=== PATIENT | male | born 1945 | race Caucasian/White ===

== ENCOUNTER → 2016-06-12 | Outpatient (CLI) | payer OTHER ==
[~2016-06-12] MED LIST: INDA1TAB3 PO; METH250T21 PO; METO25TA3 PO; POTA10TA PO; TERA1CAP63 PO
--- NOTE | 2016-06-13 10:18 | CODING QUERY NO DIAGNOSIS ---
TREATMENT RENDERED WITHOUT A DIAGNOSIS To promote full compliance with coding requirements relating to patient care, physician participation is requested in all cases of window framer uncertainty. Please assist us with providing a diagnosis/symptom for the test(s) below: A diagnosis/symptom was not documented on your Order. A valid diagnosis/symptom is required to bill all insurances. Please remember that we are unable to code a diagnosis of rule out, probable, possible, questionable, or suspected. Tests that require a diagnosis: DOS: 06/12/16 * [facility] [employer] CULTURE RIGHT DIAGNOSIS: Provider Signature: Date: Thank you Bre Fernandez [employer] Once completed, please kindly fax back to [phone] For questions please call [phone]
== END | disposition home or self-care (01) ==
LOC: C.LABSPEC 17:18
PROVIDERS: ATTEND Podiatrist Foot & Ankle Surgery
DX: L60.0 Ingrowing nail (principal); L03.032 Cellulitis of left toe

== ENCOUNTER → 2017-03-10 | Outpatient (CLI) | payer OTHER ==
[2017-03-10 12:37] LABS: BASO % 0.4 %; BASO ABS # 0.02 K/uL (0-0.2); EOS % 1.8 %; HEMATOCRIT 39.5 % (42-52); HEMOGLOBIN 13.8 g/dL (14.0-18.0); IG# 0.01 K/uL (0.00-0.02); LYMPH % 25.7 %; LYMPH ABS # 1.43 K/uL (1.2-3.4); MEAN CELL VOLUME 87.4 fL (80-100); MEAN CORPUSCULAR HEMOGLOBIN 30.5 pg (25-34); MEAN CORPUSCULAR HGB CONC 34.9 g/dl (32-36); MEAN PLATELET VOLUME 11.8 fL (7.4-10.4); MONO % 9.9 %; MONO ABS # 0.55 K/uL (0.11-0.59); NEUT ABS # 3.45 K/uL (1.4-6.5); PLATELET COUNT 239 K/uL (130-400); RED CELL DISTRIBUTION WIDTH CV 12.2 % (11.5-14.5); RED CELL DISTRIBUTION WIDTH SD 39.2 fL (36.4-46.3); WHITE BLOOD COUNT 5.56 K/uL (4.8-10.8)
[2017-03-10 13:22] LABS: HEMOGLOBIN A1C 5.4 % (4.5-5.6)
[2017-03-10 13:35] LABS: ALBUMIN 3.7 gm/dl (3.4-5.0); ALKALINE PHOSPHATASE 59 U/L (45-117); ALT/SGPT 38 U/L (12-78); AST/SGOT 31 U/L (15-37); BLOOD UREA NITROGEN 21 mg/dl (7-18); CALCIUM 8.7 mg/dl (8.5-10.1); CARBON DIOXIDE 29 mmol/L (21-32); CREATININE 1.36 mg/dl (0.60-1.40); GLUCOSE 97 mg/dl (70-99); POTASSIUM 3.5 mmol/L (3.5-5.1); SODIUM 140 mmol/L (136-145); TOTAL PROTEIN 7.5 gm/dl (6.4-8.2)
[2017-03-10 13:42] LABS: CHOLESTEROL 141 mg/dl (0-200); LDL CHOLESTEROL CALCULATED 72 mg/dl
== END | disposition home or self-care (01) ==
LOC: C.LABPVFM 10:02
PROVIDERS: ATTEND Family Medicine
DX: I10 Essential (primary) hypertension (principal)

== ENCOUNTER → 2017-04-01 | Outpatient (CLI) | payer OTHER ==
[~2017-04-01] MED LIST changes: -METO25TA3 PO; +METO25TA4 PO
[2017-04-01 13:54] LABS: CREATININE 1.44 mg/dl (0.60-1.40)
== END | disposition home or self-care (01) ==
LOC: C.LABPVFM 10:28
PROVIDERS: ATTEND Internal Medicine Gastroenterology
DX: K86.2 Cyst of pancreas (principal)

== ENCOUNTER → 2017-08-30 | Outpatient (CLI) | payer OTHER ==
[~2017-08-30] MED LIST changes: -METH250T21 PO; +METH250T4 PO
[2017-08-30 13:19] LABS: ALBUMIN 3.8 gm/dl (3.4-5.0); ALKALINE PHOSPHATASE 58 U/L (45-117); ALT/SGPT 30 U/L (12-78); AST/SGOT 28 U/L (15-37); BLOOD UREA NITROGEN 19 mg/dl (7-18); CALCIUM 8.8 mg/dl (8.5-10.1); CARBON DIOXIDE 33 mmol/L (21-32); CHOLESTEROL 115 mg/dl (0-200); CREATININE 1.41 mg/dl (0.60-1.40); GLUCOSE 78 mg/dl (70-99); LDL CHOLESTEROL CALCULATED 48 mg/dl; POTASSIUM 3.3 mmol/L (3.5-5.1); SODIUM 142 mmol/L (136-145); TOTAL PROTEIN 7.6 gm/dl (6.4-8.2)
== END | disposition home or self-care (01) ==
LOC: C.LABPVFM 10:47
PROVIDERS: ATTEND Family Medicine
DX: I10 Essential (primary) hypertension (principal)

== ENCOUNTER 2018-04-05 12:14 | Inpatient (IN) ==
[2018-04-05] MEDS ORDERED: SODIUM CHLORIDE 0.9% 1000ML 1,000 ML IV ONE (12:35)
[2018-04-05] MEDS ORDERED: SODIUM CHLORIDE 0.9% 1000ML 1,000 ML IV SCH (12:45)
[2018-04-05 13:24] LABS: Appearance Urine Clear (Clear); Bilirubin Urine Negative (Negative); Blood Urine Negative (Negative); Color Urine Yellow; Glucose Urine UA Negative (Negative); Ketones Urine Negative (Negative); Leukocyte Esterase Urine Negative (Negative); Nitrite Urine Negative (Negative); Protein Urine Negative (Negative); Specific Gravity Urine 1.024 (1.000-1.030); Urobilinogen Urine Negative (Negative)
[2018-04-05 13:47] LABS: Basophils # (auto) 0.02 K/uL (0-0.2); Basophils % (auto) 0.4 %; Eosinophils # (auto) 0.04 K/uL (0-0.5); Eosinophils % (auto) 0.7 %; Hematocrit (blood only) 30.6 % (42-52); Hemoglobin 10.6 g/dL (14.0-18.0); Immature Granulocytes # (auto) 0.01 K/uL (0.00-0.02); Immature Granulocytes % (auto) 0.2 %; Lymphocytes # (auto) 0.98 K/uL (1.2-3.4); Lymphocytes % (auto) 17.3 %; Mean Corpuscular Hgb Conc 34.6 g/dL (32-36); Mean Corpuscular Volume 87.2 fL (80-100); Mean Platelet Volume 11.2 fL (7.4-10.4); Monocytes # (auto) 0.38 K/uL (0.11-0.59); Monocytes % (auto) 6.7 %; Neutrophils # (auto) 4.23 K/uL (1.4-6.5); Neutrophils % (auto) 74.7 %; Platelet Count 300 K/uL (130-400); RDW Standard Deviation 41.4 fL (36.4-46.3); Red Blood Count 3.51 M/uL (4.7-6.1); White Blood Count 5.66 K/uL (4.8-10.8)
[2018-04-05 13:56] LABS: Albumin Level 3.6 gm/dl (3.4-5.0); BUN Creatinine Ratio 14.7 (10-20); Calcium 8.3 mg/dl (8.5-10.1); Creatinine Clr Calc Pharmacy 48.5 ml/min; Est GFR (African American) 57.8; Est GFR (Non-African American) 49.8; Potassium 3.9 mmol/L (3.5-5.1)
[2018-04-05 13:59] LABS: Albumin Globulin Ratio 1.1 (0.9-2); Bilirubin,Total 0.2 mg/dl (0.2-1); Globulin 3.3 gm/dl (2.5-4.0); Total Protein 6.9 gm/dl (6.4-8.2)
[2018-04-05 14:00] LABS: Prothrombin Time 10.5 Seconds (9.0-12.0)
[2018-04-05] MEDS ORDERED: PANTOPRAZOLE BOLUS/DRIP 1 EA IV STA (14:57)
[2018-04-05] MEDS ORDERED: PANTOprazole 80 MG in DEXTROSE 5% 100 ML IV ONE (14:57)
[2018-04-05] MEDS ORDERED: PANTOprazole 40 MG in DEXTROSE 5% 100 ML IV SCH (15:00)
--- NOTE | 2018-04-05 15:16 | History & Physical Report ---
Date of Service April 05, 2018 Assessment & Plan (1) GI bleed: - Admit to tele for monitoring - Trend h&H at 2000, hgb = 10.6 upon admission. Follow with am labs or sooner pending next result. - Type and screen completed, will ask for blood consent to be put on the chart. - Continue pantoprazole 40 mg IV BID - HOLD meloxicam - pt has been taking this routinely. Will place on tylenol for leg pain which is chronic in the setting of gi bleed. Most likely should discontinue this medication at discharge. - BUN slightly elevated at 21. - Heme + stool - EKG reviewed and without acute ST wave inversions or changes. - Ask HIM to retrieve records from [facility] regarding EUS/EGD results and most recent colonoscopy which was completed in January. - Consult Dr. Agee with [facility] - discussed with him at bedside. At this time no plans for procedure as there has already been a workup for GI bleeding including c-scope, EGD/EUS and outpatient capsule endoscopy. Await further records from [facility] for further care. - Allow a clear liquid diet. (2) Arthritis: - Holding meloxicam as above, may use tylenol prn for pain (3) GERD (gastroesophageal reflux disease): - Hold PO omeprazole, continue IV protonix 40 mg bid as above. (4) HTN (hypertension): - Cont indapamide 2.5 mg po qam, metoprolol succinate 25 mg qam, lisinopril 5 mg po qam (5) HLD (hyperlipidemia): - Continue rosuvastatin 5 mg q2d (6) Alcohol use: - Drinks 5x per week, recommend alcohol cessation in setting of GI bleed. Likely contributing to current blood loss along with mobic use. - Monitor for signs of withdrawal while inpatient. (7) DVT prophylaxis: - teds, scds, no chemical ppx in the setting of gi bleed. Disposition: Admit to tele, recheck H&H at 1999 History of Present Illness Chief Complaint: Dark stools Primary Care Provider: Constanza Goldstein MD This is a 72 yo M with PMhx of HTN, HLD, hx of constipation, gout, GERD with epigastric discomfort where he has been following with his PCP Constanza Goldstein. He presents today due to lightheadedness/dizziness. Pt notes he called the EMS this morning due to feeling very weak and nearly passing out while sitting down. He notes tarry dark stools for several weeks now. Denies any BRBPR, hematemesis, emesis, epistaxis or hematuria hx. Pt has been routinely taking mobic for leg pain for 1.5 years. Pt has hx of bloating and abdominal discomfort for ~4 months. This started after being enrolled in a study for Pancreatic cancer research due to father having pancreatic cancer, where he undergoes EUS every 6 months. Bloating/ discomfort started after his first EUS. He had been placed on omeprazole several years ago for indigestion and feels this is well controlled. Pt notes he has been told he was lactose intolerant after having a hydrogen urea breath test, however since converting his diet to dairy free symptoms have not changed. He was at [facility] yesterday, where he had an EGD and EUS performed. Requests for these study results has been made by the ER. Hgb currently 10.6 and baseline appears to be around 13-14. Pt has never received a blood transfusion before for low hemoglobin. Allergies Allergy/AdvReac Type Severity Reaction Status Date / Time Sulfa (Sulfonamide Allergy Mild ? Verified 04/05/18 14:41 Antibiotics) Penicillins Allergy Unknown Verified 04/05/18 14:41 Home Medications Home Medications Medication Instructions Recorded Confirmed Type lisinopril 5 mg PO BID 03/21/18 04/05/18 History meloxicam 15 mg PO QAM 03/21/18 04/05/18 History rosuvastatin [Crestor] 5 mg PO Q2D 03/21/18 04/05/18 History cyanocobalamin (vitamin B-12) 1,000 mcg PO QAM 04/05/18 04/05/18 History [Vitamin B-12] indapamide 2.5 mg PO QAM 04/05/18 04/05/18 History metoprolol succinate 25 mg PO QAM 04/05/18 04/05/18 History omeprazole 20 mg PO BIDM 04/05/18 04/05/18 History potassium chloride 20 meq PO QAM 04/05/18 04/05/18 History terazosin 10 mg PO HS 04/05/18 04/05/18 History Past Med/Surg History Medical History H/O blood clots (Acute) No significant active problems (Acute) Surgical History H/O shoulder surgery (Acute) Social History Current Living Situation: Spouse Other Information That Helps Us Care for You: No Feels Safe at Home: Yes Safety Concerns: Feels Safe At This Time Smoking Status: Never smoker Hx Alcohol Use: Yes Alcohol type: beer, wine and hard liquor Alcohol Intake Frequency: a few times a week Hx Substance Use: No Beliefs That Will Affect Care: None Preferred Language: Polish Communication Ability: Effective Eyelet Machine Operator Required: No Review of Systems Constitutional: No fever, sweats or chills Eyes: No diplopia, no worsening or blurred vision ENT: normal hearing, no trouble swallowing Respiratory: No cough, sputum, dyspnea at rest or on exertion Cardiovascular: No chest pain, tightness or palpitations Abdomen: As per HPI. Musculoskeletal: No joint pain, calf pain, swelling Neurologic: No weakness, numbness/tingling, or balance problems Psychiatric: No anxiety or depression Skin: No rash or itch Physical Exam 2 Vital Signs (Past 24 Hours): Last Vital Signs Temp 37.2 C 04/05/18 12:19 Pulse 78 04/05/18 13:23 Resp 18 04/05/18 13:23 BP 143/76 H 04/05/18 13:23 Pulse Ox 99 04/05/18 13:23 Physical Exam: General: awake, alert, no apparent distress Head: Normocephalic, atraumatic ENT: PERRL, EOMI, no pharyngeal exudate, mucous membranes moist Chest: Clear to auscultation, on room air, no adventitious breath sounds Cardiac: Regular rate and rhythm, no murmur, no JVD, normal peripheral pulses, good capillary refill Abdominal: NABS x 4 quadrants, soft, + mildly distended, + minimally tender to palpation in the LLQ, no rebound, guarding or tenderness Extremities: Normal inspection, no peripheral edema or erythema, calfs nontender to palpation Psych: Normal mood and affect Neuro: AAO x 3, strength intact bilaterally and related 5/5, no motor deficits, speech is clear, no peripheral sensory deficits Results & Data ECG Additional Comments: 05-APR-2018 13:04:45 [facility] Normal sinus rhythm Normal ECG When compared with ECG of 01-FEB-2015 01:43, No significant change was found Vent. rate 74 BPM AZ interval 176 ms QRS duration 88 ms QT/QTc 394/437 ms P-R-T axes 51 -13 17 Code Status & VTE Plan Code Status Full code Supervising Physician Co-Signing Physician Notes Patient seen and examined, chart reviewed, case discussed with TRINY Denson and I agree with her assessment and plan as above. Briefly, patient is a 72yo male with possible UGIB. He takes NSAIDS and drinks a small amount of EtOH daily On exam he is afebrile, HD stable, NAD +Abdominal pain in lower abdomen with deep palpation, no rebound/guarding remainder of exam unremarkable labs and images reviewed Assessment/Plan - admit to PCU. trend cbc and transfuse if active bleed. GI consult. Reminder of plan as above
--- NOTE | 2018-04-05 15:52 | Gastrointestinal Consultation ---
Date of Consultation April 05, 2018 Assessment & Plan (1) GI bleed: EGD/EUS apparently negative for source of bleeding and colonsocopy diverticulosis. I have a call out to DR Najera at [facility] who did procedure and CT to confirm results and discusss whether to send him there or elsewhere for double balloon enteroscopy vsersus do colo here and outpt capsule if he stops bleeding. Clear liquid diet for now. (2) Anemia: acute blood loss anemia. follow and transfuse prn. gerd-continue PPI. History of Present Illness Reason for Consultation: melena Requesting Physician: DR Hogue History of Present Illness CC melena, lightheaded HPI Reviewed [facility] EMR and this EMR. Pt had colonoscopy 08/2012 showing sigmoid diverticulosis. He had EGD for melena to [address] [place], [place] [id number] 07/2013 neg and capsule endoscopy negative. He has hx of GERD controlled on PPI. He developed melena about 2 weeks ago still has usual BM pattern of one a day to qod. Hgb 13.8 on and 04/01 10.1 and today 10.6. He had EGD/EUS and CTA yesterday at [facility] as part of a x pancreas CA studay. He states he gets an EUS every 6 months. There is no report of those studies. Pt states his EUS did not show source of bleeding but he does not know CTA results. He has been seeing Dr Muse recently for lower abd milly an bloating. A colonoscpy done to for LLQ pain 01/26/18 showed diverticulosis and mild hemorrhoids. CT a/p here showed nonspecific enteritis. On 02/24/18 TTG and IGA nl. A lactose tolerance test 03/21 positive. He Per ER physician he had scant stool on rectal but heme positive. Allergies Allergy/AdvReac Type Severity Reaction Status Date / Time Sulfa (Sulfonamide Allergy Mild ? Verified 04/05/18 14:41 Antibiotics) Penicillins Allergy Unknown Verified 04/05/18 14:41 Home Medications Home Medications Medication Instructions Recorded Confirmed Type lisinopril 5 mg PO BID 03/21/18 04/05/18 History meloxicam 15 mg PO QAM 03/21/18 04/05/18 History rosuvastatin [Crestor] 5 mg PO Q2D 03/21/18 04/05/18 History cyanocobalamin (vitamin B-12) 1,000 mcg PO QAM 04/05/18 04/05/18 History [Vitamin B-12] indapamide 2.5 mg PO QAM 04/05/18 04/05/18 History metoprolol succinate 25 mg PO QAM 04/05/18 04/05/18 History omeprazole 20 mg PO BIDM 04/05/18 04/05/18 History potassium chloride 20 meq PO QAM 04/05/18 04/05/18 History terazosin 10 mg PO HS 04/05/18 04/05/18 History Patient History Medical History H/O blood clots (Acute) No significant active problems (Acute) Surgical History H/O shoulder surgery (Acute) Family History Father Pancreatic cancer Social History Feels Safe at Home: Yes Smoking Status: Never smoker Preferred Language: Indonesian Review of Systems see HPI. Otherwise 10 ROS negative. Physical Exam 2 Vital Signs (Past 24 Hours): Last Vital Signs Temp 37.2 C 04/05/18 12:19 Pulse 78 04/05/18 13:23 Resp 18 04/05/18 13:23 BP 143/76 H 04/05/18 13:23 Pulse Ox 99 04/05/18 13:23 Constitutional: WD/WN, vitals as above Eyes: PERRL, conjunctivae normal, anicteric sclerae ENMT: external ear and nose normal, oropharynx normal Neck: normal visual inspection; no tracheal deviation Respiratory: normal respiratory effort, lungs clear to auscultation Cardiovascular: RRR, no murmur, no edema Gastrointestinal (Abdomen): normal bowel sounds, soft, nontender, no hepatosplenomegaly Neurologic: PERRL, EOMI, accommodation nl, no face palsy, no dysarthria Psychiatric: A+Ox3, euthymic affect _ (1) GI bleed GI bleed type/associated pathology: unspecified gastrointestinal hemorrhage type Gastritis type: Qualified Code(s): K92.2 - Gastrointestinal hemorrhage, unspecified (2) Anemia Anemia type: unspecified type Bone marrow failure anemia type: Chronic kidney disease stage: Folate deficiency anemia type: Hemolytic anemia type: Iron deficiency anemia type: Other causes of anemia: Vitamin B12 deficiency anemia type: Qualified Code(s): D64.9 - Anemia, unspecified
--- NOTE | 2018-04-05 19:14 | Emergency Department Note ---
Entered by Thais Elam acting as a scribe for Gerardo Hogue DO History of Present Illness General Chief complaint: GI Assessment Stated complaint: WEAKNESS Source: patient and family Mode of arrival: EMS Limitations: no limitations History of Present Illness Provider complaint: Dizziness Onset (ago): hour(s) less than 1 Location: head Severity: moderate Pain Consistency: + now resolved Associated symptoms: + other (fatigue) Patient is a72 year old male presenting to the ED via EMS with dizziness beginning just [employer]. Patient states that for the past x2 weeks, he has been having bloody stools, which are moderate in severity and intermittent. He notes that he went to his PCP x4 days ago to give stool sample, and was told his hemoglobin levels were low at 10.1, normally being about 13.1. Patient notes that today while sitting, he began to feel dizzy. He shares that he does not currently feel dizzy, but is fatigue. Patient denies being on blood thinners. He does share that he has a family history of pancreatic cancer, and is regularly tested at [facility] every x6 months through MRI and EUS. He notes that he has had chronic diffuse abd pain for the past x4 months after having a EUS at [facility]. He denies any nausea, vomiting, or any other complaints or concerns at this time. Home Medications Home Medications Medication Instructions Recorded Confirmed Type lisinopril 5 mg PO BID 03/21/18 04/05/18 History meloxicam 15 mg PO QAM 03/21/18 04/05/18 History rosuvastatin [Crestor] 5 mg PO Q2D 03/21/18 04/05/18 History cyanocobalamin (vitamin B-12) 1,000 mcg PO QAM 04/05/18 04/05/18 History [Vitamin B-12] indapamide 2.5 mg PO QAM 04/05/18 04/05/18 History metoprolol succinate 25 mg PO QAM 04/05/18 04/05/18 History omeprazole 20 mg PO BIDM 04/05/18 04/05/18 History potassium chloride 20 meq PO QAM 04/05/18 04/05/18 History terazosin 10 mg PO HS 04/05/18 04/05/18 History Allergies Allergy/AdvReac Type Severity Reaction Status Date / Time Sulfa (Sulfonamide Allergy Mild ? Verified 04/05/18 14:41 Antibiotics) Penicillins Allergy Unknown Verified 04/05/18 14:41 Past Med/Surg History Medical History H/O blood clots (Acute) No significant active problems (Acute) Surgical History H/O shoulder surgery (Acute) Social History Feels Safe at Home: Yes Smoking Status: Never smoker Preferred Language: Russian Review of Systems See HPI for pertinent positives & negatives. and A total of 10 systems reviewed and were otherwise negative Physical Exam Vital Signs Vital Signs - 24 hr 04/05/18 12:19 04/05/18 13:09 04/05/18 13:23 Temperature 37.2 C Temperature Source Oral Sepsis Recent Fever Within 48 Hours No Sepsis New/Unexplained Change in Mental Status No Sepsis Action Taken by Nursing No Action Required Pulse Rate 92 H 82 Pulse Rate [Left Finger] 78 Pulse Rate from SpO2 Sensor 82 Respiratory Rate 16 14 Respiratory Effort / Characteristics Non-Labored Spontaneous Respiratory Depth Normal Respiratory Pattern Regular Blood Pressure 161/72 H 143/76 H Blood Pressure [Left Arm] 143/76 H Blood Pressure Mean 101 98 Blood Pressure Mean [Left Arm] 98 Blood Pressure Position [Left Arm] Lying Pulse Oximetry 96 96 99 Oxygen Delivery Method Room Air Room Air Room Air 04/05/18 13:35 04/05/18 13:40 04/05/18 13:50 Temperature Temperature Source Sepsis Recent Fever Within 48 Hours Sepsis New/Unexplained Change in Mental Status Sepsis Action Taken by Nursing Pulse Rate 84 80 77 Pulse Rate [Left Finger] Pulse Rate from SpO2 Sensor 81 79 79 Respiratory Rate 17 18 18 Respiratory Effort / Characteristics Respiratory Depth Respiratory Pattern Blood Pressure Blood Pressure [Left Arm] Blood Pressure Mean Blood Pressure Mean [Left Arm] Blood Pressure Position [Left Arm] Pulse Oximetry 98 98 98 Oxygen Delivery Method 04/05/18 14:00 04/05/18 14:01 04/05/18 14:10 Temperature Temperature Source Sepsis Recent Fever Within 48 Hours Sepsis New/Unexplained Change in Mental Status Sepsis Action Taken by Nursing Pulse Rate 76 75 72 Pulse Rate [Left Finger] Pulse Rate from SpO2 Sensor 76 75 73 Respiratory Rate 21 17 21 Respiratory Effort / Characteristics Respiratory Depth Respiratory Pattern Blood Pressure 152/79 H Blood Pressure [Left Arm] Blood Pressure Mean 103 Blood Pressure Mean [Left Arm] Blood Pressure Position [Left Arm] Pulse Oximetry 98 98 99 Oxygen Delivery Method 04/05/18 14:20 04/05/18 14:30 04/05/18 14:40 Temperature Temperature Source Sepsis Recent Fever Within 48 Hours Sepsis New/Unexplained Change in Mental Status Sepsis Action Taken by Nursing Pulse Rate 73 69 73 Pulse Rate [Left Finger] Pulse Rate from SpO2 Sensor 73 69 73 Respiratory Rate 18 13 17 Respiratory Effort / Characteristics Respiratory Depth Respiratory Pattern Blood Pressure Blood Pressure [Left Arm] Blood Pressure Mean Blood Pressure Mean [Left Arm] Blood Pressure Position [Left Arm] Pulse Oximetry 98 99 98 Oxygen Delivery Method 04/05/18 14:50 04/05/18 15:00 04/05/18 15:01 Temperature Temperature Source Sepsis Recent Fever Within 48 Hours Sepsis New/Unexplained Change in Mental Status Sepsis Action Taken by Nursing Pulse Rate 71 65 Pulse Rate [Left Finger] Pulse Rate from SpO2 Sensor 94 H 71 66 Respiratory Rate 21 12 5 L Respiratory Effort / Characteristics Respiratory Depth Respiratory Pattern Blood Pressure 154/84 H Blood Pressure [Left Arm] Blood Pressure Mean 107 Blood Pressure Mean [Left Arm] Blood Pressure Position [Left Arm] Pulse Oximetry 97 97 98 Oxygen Delivery Method 04/05/18 15:10 04/05/18 15:20 04/05/18 15:30 Temperature Temperature Source Sepsis Recent Fever Within 48 Hours Sepsis New/Unexplained Change in Mental Status Sepsis Action Taken by Nursing Pulse Rate 76 80 83 Pulse Rate [Left Finger] Pulse Rate from SpO2 Sensor 73 69 85 Respiratory Rate 20 13 24 Respiratory Effort / Characteristics Respiratory Depth Respiratory Pattern Blood Pressure Blood Pressure [Left Arm] Blood Pressure Mean Blood Pressure Mean [Left Arm] Blood Pressure Position [Left Arm] Pulse Oximetry 96 100 99 Oxygen Delivery Method 04/05/18 15:40 04/05/18 15:50 04/05/18 16:00 Temperature Temperature Source Sepsis Recent Fever Within 48 Hours Sepsis New/Unexplained Change in Mental Status Sepsis Action Taken by Nursing Pulse Rate 80 75 72 Pulse Rate [Left Finger] Pulse Rate from SpO2 Sensor 81 74 73 Respiratory Rate 18 16 15 Respiratory Effort / Characteristics Respiratory Depth Respiratory Pattern Blood Pressure 164/75 H Blood Pressure [Left Arm] Blood Pressure Mean 104 Blood Pressure Mean [Left Arm] Blood Pressure Position [Left Arm] Pulse Oximetry 99 98 98 Oxygen Delivery Method 04/05/18 16:01 04/05/18 16:10 04/05/18 16:20 Temperature Temperature Source Sepsis Recent Fever Within 48 Hours Sepsis New/Unexplained Change in Mental Status Sepsis Action Taken by Nursing Pulse Rate 72 71 72 Pulse Rate [Left Finger] Pulse Rate from SpO2 Sensor 72 71 79 Respiratory Rate 9 L 15 18 Respiratory Effort / Characteristics Respiratory Depth Respiratory Pattern Blood Pressure Blood Pressure [Left Arm] Blood Pressure Mean Blood Pressure Mean [Left Arm] Blood Pressure Position [Left Arm] Pulse Oximetry 98 98 99 Oxygen Delivery Method 04/05/18 16:30 04/05/18 16:40 04/05/18 16:50 Temperature Temperature Source Sepsis Recent Fever Within 48 Hours Sepsis New/Unexplained Change in Mental Status Sepsis Action Taken by Nursing Pulse Rate 78 76 74 Pulse Rate [Left Finger] Pulse Rate from SpO2 Sensor 79 76 72 Respiratory Rate 19 20 18 Respiratory Effort / Characteristics Respiratory Depth Respiratory Pattern Blood Pressure Blood Pressure [Left Arm] Blood Pressure Mean Blood Pressure Mean [Left Arm] Blood Pressure Position [Left Arm] Pulse Oximetry 98 99 96 Oxygen Delivery Method 04/05/18 17:00 04/05/18 17:01 04/05/18 17:10 Temperature Temperature Source Sepsis Recent Fever Within 48 Hours Sepsis New/Unexplained Change in Mental Status Sepsis Action Taken by Nursing Pulse Rate 68 75 67 Pulse Rate [Left Finger] Pulse Rate from SpO2 Sensor 68 74 68 Respiratory Rate 13 20 20 Respiratory Effort / Characteristics Respiratory Depth Respiratory Pattern Blood Pressure 150/71 H Blood Pressure [Left Arm] Blood Pressure Mean 97 Blood Pressure Mean [Left Arm] Blood Pressure Position [Left Arm] Pulse Oximetry 98 99 98 Oxygen Delivery Method 04/05/18 17:20 04/05/18 17:30 Temperature Temperature Source Sepsis Recent Fever Within 48 Hours Sepsis New/Unexplained Change in Mental Status Sepsis Action Taken by Nursing Pulse Rate 67 73 Pulse Rate [Left Finger] Pulse Rate from SpO2 Sensor 68 73 Respiratory Rate 19 16 Respiratory Effort / Characteristics Respiratory Depth Respiratory Pattern Blood Pressure Blood Pressure [Left Arm] Blood Pressure Mean Blood Pressure Mean [Left Arm] Blood Pressure Position [Left Arm] Pulse Oximetry 99 99 Oxygen Delivery Method GENERAL: Sitting up in bed, alert, well appearing, well nourished, no distress, non-toxic EYE EXAM: normal conjunctiva. OROPHARYNX: no exudate, no erythema, lips, buccal mucosa, and tongue normal and mucous membranes are moist NECK: supple, no nuchal rigidity, no adenopathy, non-tender LUNGS: Clear to auscultation. Normal chest wall mechanics HEART: no murmurs, S1 normal and S2 normal ABDOMEN: abdomen soft, non-tender, normo-active bowel, sounds, no masses, no rebound or guarding. RECTAL: hemoccult positive BACK: Back is symmetrical on inspection and there is no deformity, no midline tenderness, no CVA tenderness. SKIN: no rashes and no bruising UPPER EXTREMITIES: upper extremities are grossly normal. LOWER EXTREMITIES: No pitting edema. NEURO EXAM: Normal sensorium, cranial nerves II-XII grossly intact, normal speech, no gross weakness of arms, no gross weakness of legs. No drift. Finger to noseintact. Gross sensation intact. Course Vital signs were reviewed and showed hypertension. The patients medical record was reviewed The above diagnostic studies were performed and reviewed. ED treatments and interventions as stated above. 1235: The patient was evaluated in room A11B. A complete history and physical examination was performed. 1410: Upon reevaluation, the patient is feeling better. I discussed my findings with the patient and he understands and agrees with the treatment plan regarding admission. Based on the patients age, coexisting illnesses, exam and lab findings the decision to treat as an inpatient was made. 1441: Discussed patient case with Dr. Agee, who agrees patient should be admitted. 1454: Discussed case with Dr. Kelly, who is accepting patient for admission. The patient remained stable while under my care. The patient will be evaluated for further management. Administered Medications Pantoprazole Sodium 40 mg/ (Dextrose) 100 mls @ 20 mls/hr IV Q5H DONNY Stop: 05/05/18 14:59 Last Admin: 04/05/18 15:34 Dose: 20 mls/hr Discontinued Medications Sodium Chloride (Nss 1000ml) 1,000 mls @ 999 mls/hr IV .Q1H1M ONE Stop: 04/05/18 13:35 Last Infusion: 04/05/18 14:03 Dose: 0 mls/hr Admin: 04/05/18 13:09 Dose: 999 mls/hr Sodium Chloride (Nss 1000ml) 1,000 mls @ 999 mls/hr IV .Q1H1M DONNY Stop: 04/05/18 13:45 Last Infusion: 04/05/18 14:03 Dose: 0 mls/hr Admin: 04/05/18 13:09 Dose: 999 mls/hr Pantoprazole Sodium 80 mg/ (Dextrose) 120 mls @ 400 mls/hr IV NOW ONE Stop: 04/05/18 15:14 Last Infusion: 04/05/18 15:34 Dose: 0 mls/hr Admin: 04/05/18 15:16 Dose: 400 mls/hr Pantoprazole Sodium (Protonix Bolus/Drip) 0 mls @ 1 mls/hr IV ONE STA Stop: 04/05/18 14:58 Last Admin: 04/05/18 15:41 Dose: Not Given Medical Decision Making Differential Diagnosis Differential diagnosis includes etiologies such as benign positional vertigo, dehydration, hypovolemia, anemia, tumor, infection, hypoglycemia, electrolyte abnormalities, cardiac sources, intracerebral event, toxicologic, neurologic, as well as others were entertained. Medical Records Attestation: I reviewed the patient's medical records. Home Medications Current Medication List: was personally reviewed by me Laboratory Data Attestation: I reviewed the patient's lab results. Result diagrams: 04/05/18 12:47 04/05/18 12:47 Lab Results 04/05/18 04/05/18 04/05/18 Range/Units 12:47 12:47 12:47 WBC 5.66 (4.8-10.8) K/uL RBC 3.51 L (4.7-6.1) M/uL Hgb 10.6 L (14.0-18.0) g/dL Hct 30.6 L (42-52) % MCV 87.2 (80-100) fL MCH 30.2 (25-34) pg MCHC 34.6 (32-36) g/dL RDW Std Deviation 41.4 (36.4-46.3) fL RDW Coeff of Alvin 13.0 (11.5-14.5) % Plt Count 300 (130-400) K/uL MPV 11.2 H (7.4-10.4) fL Immature Gran % (Auto) 0.2 % Neut % (Auto) 74.7 % Lymph % (Auto) 17.3 % [place] % (Auto) 6.7 % Eos % (Auto) 0.7 % Baso % (Auto) 0.4 % Immature Gran # (Auto) 0.01 (0.00-0.02) K/uL Neut # (Auto) 4.23 (1.4-6.5) K/uL Lymph # (Auto) 0.98 L (1.2-3.4) K/uL [place] # (Auto) 0.38 (0.11-0.59) K/uL Eos # (Auto) 0.04 (0-0.5) K/uL Baso # (Auto) 0.02 (0-0.2) K/uL PT 10.5 (9.0-12.0) Seconds INR 1.0 (0.9-1.1) Sodium 140 (136-145) mmol/L Potassium 3.9 (3.5-5.1) mmol/L Chloride 107 (98-107) mmol/L Carbon Dioxide 29 (21-32) mmol/L Anion Gap 5.0 (3-11) BUN 21 H (7-18) mg/dl Creatinine 1.40 (0.6-1.4) mg/dl Est Cr Clr Drug Dosing 48.5 ml/min Est GFR ( Amer) 57.8 Est GFR (Non-Af Amer) 49.8 BUN/Creatinine Ratio 14.7 (10-20) Glucose 97 (70-99) mg/dl Calcium 8.3 L (8.5-10.1) mg/dl Total Bilirubin 0.2 (0.2-1) mg/dl AST 24 (15-37) U/L ALT 25 (12-78) U/L Alkaline Phosphatase 55 (45-117) U/L Total Protein 6.9 (6.4-8.2) gm/dl Albumin 3.6 (3.4-5.0) gm/dl Globulin 3.3 (2.5-4.0) gm/dl Albumin/Globulin Ratio 1.1 (0.9-2) Lipase 213 (73-393) U/L Urine Color Urine Appearance (Clear) Urine pH (4.5-7.5) Ur Specific [place] (1.000-1.030) Urine Protein (Negative) Urine Glucose (UA) (Negative) Urine Ketones (Negative) Urine Blood (Negative) Urine Nitrite (Negative) Urine Bilirubin (Negative) Urine Urobilinogen (Negative) Ur Leukocyte Esterase (Negative) Blood Type Antibody Screen 04/05/18 04/05/18 Range/Units 12:47 13:10 WBC (4.8-10.8) K/uL RBC (4.7-6.1) M/uL Hgb (14.0-18.0) g/dL Hct (42-52) % MCV (80-100) fL MCH (25-34) pg MCHC (32-36) g/dL RDW Std Deviation (36.4-46.3) fL RDW Coeff of Alvin (11.5-14.5) % Plt Count (130-400) K/uL MPV (7.4-10.4) fL Immature Gran % (Auto) % Neut % (Auto) % Lymph % (Auto) % [place] % (Auto) % Eos % (Auto) % Baso % (Auto) % Immature Gran # (Auto) (0.00-0.02) K/uL Neut # (Auto) (1.4-6.5) K/uL Lymph # (Auto) (1.2-3.4) K/uL [place] # (Auto) (0.11-0.59) K/uL Eos # (Auto) (0-0.5) K/uL Baso # (Auto) (0-0.2) K/uL PT (9.0-12.0) Seconds INR (0.9-1.1) Sodium (136-145) mmol/L Potassium (3.5-5.1) mmol/L Chloride (98-107) mmol/L Carbon Dioxide (21-32) mmol/L Anion Gap (3-11) BUN (7-18) mg/dl Creatinine (0.6-1.4) mg/dl Est Cr Clr Drug Dosing ml/min Est GFR ( Amer) Est GFR (Non-Af Amer) BUN/Creatinine Ratio (10-20) Glucose (70-99) mg/dl Calcium (8.5-10.1) mg/dl Total Bilirubin (0.2-1) mg/dl AST (15-37) U/L ALT (12-78) U/L Alkaline Phosphatase (45-117) U/L Total Protein (6.4-8.2) gm/dl Albumin (3.4-5.0) gm/dl Globulin (2.5-4.0) gm/dl Albumin/Globulin Ratio (0.9-2) Lipase (73-393) U/L Urine Color Yellow Urine Appearance Clear (Clear) Urine pH 6.0 (4.5-7.5) Ur Specific [place] 1.024 (1.000-1.030) Urine Protein Negative (Negative) Urine Glucose (UA) Negative (Negative) Urine Ketones Negative (Negative) Urine Blood Negative (Negative) Urine Nitrite Negative (Negative) Urine Bilirubin Negative (Negative) Urine Urobilinogen Negative (Negative) Ur Leukocyte Esterase Negative (Negative) Blood Type A Negative Antibody Screen NEGATIVE ECG Data Attestation: I personally reviewed and interpreted this ECG as follows: Indication: other (dizziness) Rate (beats per minute): 74 Rhythm: sinus rhythm Findings: + other (normal axis); no PVC Blood Pressure Blood Pressure Findings: Elevated blood pressure Blood Pressure Disposition: elevated BP felt to be situational MDM Narrative Patient is a 72-year-old male presents the ER for 2 weeks of dark stool. He notes he has been feeling weak and dizzy recently. Labs were obtained and showed a hemoglobin 10.6 down from 13.8. INR is unremarkable. BMP along with LFTs bilirubin and lipase is unremarkable. UA was negative. Patient was typed and screened. Patient had a CT performed as an outpatient done yesterday of his abdomen and we attempted to obtain this from [facility]. No new abdominal pain. Discussed with GI and the hospitalist. Patient was placed on fluids and given a Protonix drip and bolus. Patient was admitted to the hospitalist for a GI bleed. Impression & Plan GI bleed, Anemia Discharge Plan Visit Data Chief Complaint: GI Assessment Stated Complaint: WEAKNESS ED Provider: Gerardo Hogue Discharge Problem: GI bleed, Anemia The scribe's documentation has been prepared under my direction and personally reviewed by me in its entirety. I confirm that the note above accurately reflects all work, treatment, procedures, and medical decision making performed by me.
[2018-04-05] MEDS ORDERED: ONDANSETRON INJ 2 MG/ML 2 ML VIAL IV PRN (19:25)
[2018-04-05] MEDS ORDERED: ACETAMINOPHEN 325 MG TAB PO PRN (19:25)
[2018-04-05 20:04] LABS: Hemoglobin 10.3 g/dL (14.0-18.0)
[2018-04-05] MEDS ORDERED: TERAZOSIN HCL 5 MG CAP PO SCH (21:00)
[2018-04-05] MEDS: LISINOPRIL 5 MG TAB PO SCH (21:17)
[2018-04-05] MEDS: PANTOprazole 40 MG in SYRINGE 0 ML IV SCH (21:17)
[2018-04-06 06:07] LABS: Hematocrit (blood only) 28.6 % (42-52); Hemoglobin 9.6 g/dL (14.0-18.0); Mean Corpuscular Hgb Conc 33.6 g/dL (32-36); Mean Corpuscular Volume 89.4 fL (80-100); Mean Platelet Volume 10.4 fL (7.4-10.4); Platelet Count 252 K/uL (130-400); RDW Coefficient of Variation 12.9 % (11.5-14.5); RDW Standard Deviation 41.7 fL (36.4-46.3); White Blood Count 4.65 K/uL (4.8-10.8)
[2018-04-06 06:45] LABS: BUN Creatinine Ratio 10.7 (10-20); Calcium 7.6 mg/dl (8.5-10.1); Est GFR (African American) 56.8; Potassium 3.8 mmol/L (3.5-5.1)
[2018-04-06 06:47] LABS: Bilirubin,Total 0.6 mg/dl (0.2-1); Globulin 2.9 gm/dl (2.5-4.0); Total Protein 5.9 gm/dl (6.4-8.2)
[2018-04-06] MEDS: LISINOPRIL 5 MG TAB PO SCH (08:14)
[2018-04-06] MEDS: PANTOprazole 40 MG in SYRINGE 0 ML IV SCH (08:14)
[2018-04-06] MEDS ORDERED: INDAPAMIDE 1.25 MG TAB PO SCH (09:00)
[2018-04-06] MEDS ORDERED: POTASSIUM CHLORIDE 10 MEQ TABCR PO SCH (09:00)
[2018-04-06] MEDS ORDERED: METOPROLOL SUCC 25MG EXT REL TAB PO SCH (09:00)
[2018-04-06] MEDS ORDERED: ROSUVASTATIN CALCIUM 5 MG TAB PO SCH (09:00)
[2018-04-06] MEDS ORDERED: CYANOCOBALAMIN 500 MCG TABLET (VITAMIN B-12) PO SCH (09:00)
[2018-04-06 14:21] LABS: Basophils # (auto) 0.06 K/uL (0-0.2); Basophils % (auto) 1.3 %; Eosinophils # (auto) 0.05 K/uL (0-0.5); Eosinophils % (auto) 1.1 %; Hematocrit (blood only) 27.8 % (42-52); Hemoglobin 9.4 g/dL (14.0-18.0); Immature Granulocytes # (auto) 0.01 K/uL (0.00-0.02); Immature Granulocytes % (auto) 0.2 %; Lymphocytes # (auto) 1.38 K/uL (1.2-3.4); Lymphocytes % (auto) 29.8 %; Mean Corpuscular Hgb Conc 33.8 g/dL (32-36); Mean Corpuscular Volume 88.8 fL (80-100); Mean Platelet Volume 10.8 fL (7.4-10.4); Monocytes # (auto) 0.43 K/uL (0.11-0.59); Monocytes % (auto) 9.3 %; Neutrophils % (auto) 58.3 %; Platelet Count 255 K/uL (130-400); RDW Standard Deviation 41.6 fL (36.4-46.3); Red Blood Count 3.13 M/uL (4.7-6.1); White Blood Count 4.63 K/uL (4.8-10.8)
--- NOTE | 2018-04-06 14:51 | Gastroenterology Progress Note ---
Date of Service April 06, 2018 Assessment & Plan (1) GI bleed: EGD/EUS apparently negative for source of bleeding and colonsocopy 01/26/18 diverticulosis. Did not receive call from [facility]. Saw CTA/CT renal cyst and nl mesenteric vessels. NoEGD or EUS report in chart. Resolved. Discussed with patient and recommend outpt capsule endoscopy and will have our nurse in office work on that. Discussed have PCP check CBC next wednesday. Also discussed stop Mobic and do not use other NSAIDS except tylenol. Discussed with Dr Maya. Will sign off. (2) Anemia: acute blood loss anemia. drop this am but no active bleed and stable this am --ok for DC from GI standpoint. gerd-continue PPI. Subjective cc f/u GI bleeeding HPI Had normal colored stool today with some fresh heme on wiping likely hemorrhoids. No black stools. No abd pin. Respiratory: no dyspnea Cardiovascular: no chest pain Physical Exam Vital Signs (Past 24 Hours): Last Vital Signs Temp 36.8 C 04/06/18 11:07 Pulse 63 04/06/18 11:07 Resp 20 04/06/18 11:07 BP 120/60 04/06/18 11:07 Pulse Ox 98 04/06/18 11:07 Constitutional: WD/WN, vitals as above Respiratory: normal respiratory effort, lungs clear to auscultation Cardiovascular: RRR, no murmur, no edema Gastrointestinal (Abdomen): normal bowel sounds, soft, nontender, no hepatosplenomegaly Psychiatric: A+Ox3, euthymic affect (1) GI bleed GI bleed type/associated pathology: unspecified gastrointestinal hemorrhage type Qualified Code(s): K92.2 - Gastrointestinal hemorrhage, unspecified (2) Anemia Anemia type: unspecified type Qualified Code(s): D64.9 - Anemia, unspecified
--- NOTE | 2018-04-06 15:42 | Discharge Summary ---
Date of Service April 06, 2018 Admission HPI Per Admitting Provider This is a 72 yo M with PMhx of HTN, HLD, hx of constipation, gout, GERD with epigastric discomfort where he has been following with his PCP Constanza Goldstein. He presents today due to lightheadedness/dizziness. Pt notes he called the EMS this morning due to feeling very weak and nearly passing out while sitting down. He notes tarry dark stools for several weeks now. Denies any BRBPR, hematemesis, emesis, epistaxis or hematuria hx. Pt has been routinely taking mobic for leg pain for 1.5 years. Pt has hx of bloating and abdominal discomfort for ~4 months. This started after being enrolled in a study for Pancreatic cancer research due to father having pancreatic cancer, where he undergoes EUS every 6 months. Bloating/discomfort started after his first EUS. He had been placed on omeprazole several years ago for indigestion and feels this is well controlled. Pt notes he has been told he was lactose intolerant after having a hydrogen urea breath test, however since converting his diet to dairy free symptoms have not changed. He was at [facility] yesterday, where he had an EGD and EUS performed. Requests for these study results has been made by the ER. Hgb currently 10.6 and baseline appears to be around 13-14. Pt has never received a blood transfusion before for low hemoglobin. Hospital course The patient was admitted to telemetry. Gastroenterology was consulted. Given the patient's recent EGD and colonoscopy, combined with the patient's hemodynamic stability and stable blood count, a video endoscopy was recommended as the next step. With no active bleeding it was decided that this can be done as an outpatient and this was the patient's preference as well. The patient will contact [facility] gastroenterology on Wednesday of next week to start arrangements. Patient also follow-up with his primary care physician early next week for reexamination and a repeat hemoglobin. We discussed the signs and symptoms of acute blood loss and he will return to the emergency department should he experience the symptoms. We discussed that Mobic could potentiate gastrointestinal bleeding and recommend that he stop taking the Mobic and discuss other options for his osteoarthritic knee pain with his primary care physician. Repeat BMP was completed to monitor his CKD, stage III Diagnosis (primary) Gastrointestinal bleeding Anemia, acute blood loss CKD, stage III Principal Diagnosis Gastrointestinal bleed Acute blood loss anemia CKD, stage III Discharge Exam Upon examination the patient is alert and oriented. He has no complaints. He is lying supine in bed without any distress. HEENT: Mucous membranes are pink and moist. Neck is supple. Trachea is midline. CV: Regular rate and rhythm. LUNGS: Clear throughout with nonlabored respirations. ABD: Soft and nontender. Bowel sounds are auscultated and are normoactive. EXT: No edema. No calf tenderness appreciated. Discharge Data Allergies Allergy/AdvReac Type Severity Reaction Status Date / Time Sulfa (Sulfonamide Allergy Mild ? Verified 04/05/18 14:41 Antibiotics) Penicillins Allergy Unknown Verified 04/05/18 14:41 Consultations 04/05/18 14:57 ED Decision to Admit Stat 04/05/18 19:25 Consult Case Management - Discharge Planning Routine Consult Gastroenterology Routine Consult Health Information Management Stat Total Time Total Time Spent Total Time Spent (In Minutes): 45 Total Time Includes: Examination of the Patient, Discharge Planning, Medication Reconciliation and Communication With Other Providers Discharge Plan Discharge Items Patient Disposition: Home - Self-Care Reason For Visit: GI BLEED Discharge Diagnosis: GI Bleed Condition: Good Discharge Goals: Diagnostic testing and Learn about illness Activity: Resume your previous activity Lifting: Gradually increase as tolerated Bathing: No limitations Sexual Activity: When tolerated Exercise/Sports: Gradually increase as tolerated Driving/Machine Use: No limitations Non-emergency contact: Primary Care Provider Call non-emergency contact if: you have any medication questions and your sy mptoms worsen Follow-up/Referrals: Contsanza Goldstein MD [Primary Care Provider] - Diet: Heart Healthy Addtl Provider Instructions: Stop taking your meloxicam. Follow up with your family doctor next week. Check your blood count next week. Prescriptions: Continued indapamide 2.5 mg tablet 2.5 mg PO QAM RF: 0 potassium chloride 10 mEq Tablet Extended Release 20 meq PO QAM RF: 0 metoprolol succinate 25 mg tablet extended release 24 hr 25 mg PO QAM RF: 0 terazosin 10 mg capsule 10 mg PO HS RF: 0 cyanocobalamin (vitamin B-12) [Vitamin B-12] 1,000 mcg Tablet Extended Release 1,000 mcg PO QAM RF: 0 omeprazole 20 mg capsule,delayed release(DR/EC) 20 mg PO BIDM RF: 0 lisinopril 5 mg Tablet 5 mg PO BID RF: 0 rosuvastatin [Crestor] 5 mg Tablet 5 mg PO Q2D RF: 0 Discontinued meloxicam 15 mg Tablet 15 mg PO QAM RF: 0 Stand-Alone Forms: [facility] Discharge Orders: Discharge Order (Routine); Ordered 04/06/18 Ordered By: Beau Maya Admission Data Admit Date/Time: 04/05/18 15:48 Attending Provider: Beau Maya Admit Provider: Danica Kelly Primary Care Provider: Constanza Goldstein Other Providers: Danica Kelly ; Anthony Agee Service: Telemetry Other Interventions: Discharge Summary Assessment (RN) Last Done: 04/06/18 15:01 Pending Studies at Discharge: No
== END 2018-04-06 15:10 | disposition home or self-care (01) | DRG 378 ==
LOC: ED 12:14 → SUATTDRO 15:48 → 2E 15:48